=== PATIENT | male | born 1980 | race Caucasian/White ===

== ENCOUNTER 2019-08-18 19:06 | Emergency (ER) | payer OTHER ==
[2019-08-18 19:33] VITALS: BP 154/105; PULSE 96; TEMP 98.8
--- NOTE | 2019-08-18 19:35 | PDOC ---
Rapid Medical Evaluation Time Seen by Provider: 08/18/19 19:32 Medical Evaluation: Vital Signs Temp Pulse Resp BP Pulse Ox 98.8 F 96 H 20 154/105 H 98 08/18/19 19:31 08/18/19 19:31 08/18/19 19:31 08/18/19 19:31 08/18/19 19:31 08/18/19 19:33 I performed a brief in-person evaluation of this patient. Pt is a 39 y/o male with cough, fever and bodyaches for the last 4 days. He has a history of PNA and states this feels similar so he presented to be evaluated for pneumonia. 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 He denies any recent travel. Pertinent physical exam findings: good air entry, non-toxic, speaking in full sentences. I have ordered the following: cxr Patient to proceed to [facility] for further evaluation. Discharge Disposition - Diagnosis Fever - Referrals - Patient Instructions - Post Discharge Activity
--- NOTE | 2019-08-18 20:43 | PDOC ---
Rapid Medical Evaluation Chief Complaint: Cold Symptoms Time Seen by Provider: 08/18/19 19:32 Medical Evaluation: Vital Signs Temp Pulse Resp BP Pulse Ox 98.8 F 96 H 20 154/105 H 98 08/18/19 19:31 08/18/19 19:31 08/18/19 19:31 08/18/19 19:31 08/18/19 19:31 08/18/19 20:40 HPI: COVID-19 CDC guideline data points: The patient is a 39 y/o male presents with no exposure to, suspected, or confirmed] COVID-19 with associated symptoms of subj fever last week , diarrhea last week, but states dry cough continues intermittently ROS: NEGATIVE: denies currently difficulty breathing, shortness of breath, chest pain, lightheadedness, dizziness, nausea, vomiting and diarrhea. Other 12 point ROS reviewed and negative. Exam: General: NAD, Well-Appearing, Awake, Alert Oriented x3. Vital signs stable. ENT: No rhinorrhea or nasal congestion. Neck: FROM, no midline tenderness. Lungs: Clear to auscultation bilaterally without wheezes, rhonchi or rales. Normal excursion. Patient is able to speak in full sentences. Heart: HR: [ ] Regular rhythm, S1-S2 present, no murmurs rubs or gallops. Abdomen: Non-distended. MSK/Extremities: No decrease ROM, No obvious deformities. No obvious cyanosis noted. Neuro: Normal Gait, Cranial Nerves II through XII Grossly Intact. Skin: No obvious rashes, bruising. Color Normal Appearing. Assessment/Plan: [Cough/fever] Patient has no med hx and denies recent travel and known COVID exposure. Patient does not meet testing criteria at this time. CXR ordered from [facility] ASSESSMENT: Denies recent travel and known Covid exposure. Treatment: 08/18/19 20:43 cxr -, repeat vitals 99% on RA , pulse 90, temp 98.7 Discharge Disposition - Diagnosis Cough - Discharge Dispostion Disposition: HOME Condition at time of disposition: Good - Referrals Referrals: Edi Bennett MD [Primary Care Provider] - - Patient Instructions Printed Discharge Instructions: DI for Cough -- Adult Additional Instructions: Please stay well hydrated, wash hands, and wear mask while at work. - Post Discharge Activity
== END 2019-08-18 20:50 | disposition home or self-care (01) ==
LOC: JER 19:06
DX: R05 Cough (principal); R50.9 Fever, unspecified
CPT/HCPCS: 71045-TC-FY; 99283-25

== ENCOUNTER 2023-10-16 13:24 | Emergency (ER) | payer OTHER ==
[2023-10-16] MEDS ORDERED: FLUORESCEIN NA 1 EA STRIP ONE (13:44)
[2023-10-16 13:49] VITALS: BP 143/107; PULSE 75; RESP 15; TEMP 98.4; BMI 29.9
[2023-10-16] MEDS ORDERED: METOCLOPRAMIDE HCL INJECTION 10 MG/2 ML VIAL ONE (14:47)
[2023-10-16] MEDS ORDERED: ACETAMINOPHEN INJECTION 100 ML IVPB ONE (14:48)
[2023-10-16] MEDS: SODIUM CHLORIDE 0.9% 1000 ML INFUS.BAG IV ONE (14:50)
[2023-10-16] MEDS: METOCLOPRAMIDE HCL INJECTION 10 MG/2 ML VIAL IVPB ONE (15:00)
[2023-10-16] MEDS: ACETAMINOPHEN 1000 MG/100 ML BAG IVPB ONE (15:10)
[2023-10-16 15:28] LABS: HEMATOCRIT 44.1 % (35.4-49); HEMOGLOBIN 14.8 G/dL (11.7-16.9); MCH 29.4 pg (25.7-33.7); MCHC 33.7 g/dl (32.0-35.9); MEAN CELL VOLUME 87.3 fl (80-96); MEAN PLT VOLUME 9.9 fl (7.5-11.1); PLATELET COUNT 226.6 10^3/uL (134-434); RBC 5.05 10^6/uL (4.00-5.60); RDW 13.6 % (11.9-15.9); WHITE BLOOD COUNT 7.3 10^3/uL (4.0-10.8)
[2023-10-16 15:36] LABS: ALBUMIN 4.7 g/dl (3.4-5.0); ALK PHOS 65 U/L (45-117); ANION GAP 8 mmol/L (4-13); BILIRUBIN,TOTAL 0.4 mg/dl (0.2-1); CALCIUM 9.8 mg/dl (8.5-10.1); CHLORIDE 105 mmol/L (98-107); CO2 28 mmol/L (21-32); GLUCOSE,RANDOM 101 mg/dl (74-106); SGOT/AST 20 U/L (15-37); SGPT/ALT 28 U/L (7-52); SODIUM 141 mmol/L (136-145)
[2023-10-16 16:20] LABS: PLATELET ESTIMATE ADEQUATE
[2023-10-16 16:57] LABS: ERYTHROCYTE SEDIMENTATION RATE 2 mm/hr (0-10)
== END 2023-10-16 16:35 | disposition home or self-care (01) ==
LOC: FER 13:24
PROC: 3E033NZ Introduction of Analgesics, Hypnotics, Sedatives into Peripheral Vein, Percutaneous Approach (ICD-10-PCS; principal; 2023-10-16)
PROC: 3E033GC Introduction of Other Therapeutic Substance into Peripheral Vein, Percutaneous Approach (ICD-10-PCS; 2023-10-16)
DX: H53.8 Other visual disturbances (principal); R51.9 Headache, unspecified
CPT/HCPCS: 36415; 70450-TC; 80053; 85027; 85651; 99284-25; J0131